=== PATIENT | female | born 1935 | race Caucasian/White ===

== ENCOUNTER 2016-09-20 09:58 | Inpatient (IN) | payer OTHER, BC ==
[~2016-09-20] VITALS: Ht 152.4 cm; Wt 48.0 kg
[2016-09-20] MEDS ORDERED: ZESTORETIC 20-1 EAC1 PO (10:25)
[2016-09-20] MEDS ORDERED: ATORVASTATIN CA20 MG PO (10:26)
[2016-09-20] MEDS ORDERED: SERTRALINE HCL25 MG PO (10:27)
[2016-09-20] MEDS ORDERED: LO-DOSE ASPIRIN81 M2 PO (10:27)
[2016-09-20] MEDS ORDERED: CALTRATE PLUS1 EACH PO (10:28)
[2016-09-20 11:19] LABS: EOSINOPHIL (%) 0.1 % (0-5); HEMATOCRIT 31.8 % (36.0-46.0); IMMATURE GRANULOCYTE (%) 0.4 % (0.0-0.7); LYMPHOCYTE COUNT 0.7 K/uL (1.0-2.8); MCH 29.6 PG (29.0-34.0); MCHC 36.2 G/DL (30.0-36.0); MEAN PLAT.VOLUME 8.9 uM^3 (9.5-12.4); MONOCYTE (%) 13.2 % (3-12); NEUTROPHIL (%) 77.6 % (45-76); PLATELET COUNT 254 K/uL (156-360); RBC DIS.WIDTH-CV 12.1 % (11.8-14.6); RBC DIS.WIDTH-SD 36.8 % (39-53); RED BLOOD COUNT 3.88 M/uL (3.80-5.20); WHITE BLOOD COUNT 7.8 K/uL (4.1-10.2)
[2016-09-20 11:32] LABS: CHLORIDE 91 mEq/L (99-109); POTASSIUM 3.1 mEq/L (3.7-5.4); SODIUM 127 mEq/L (136-147)
[2016-09-20 11:35] LABS: GLUCOSE 125 mg/dL (70-99)
[2016-09-20 11:36] LABS: ANION GAP 11 MEQ/L (2-14)
[2016-09-20 11:37] LABS: TOTAL BILIRUBIN 0.4 mg/dL (0.0-1.0)
[2016-09-20 11:38] LABS: ALKALINE PHOSPHATASE 56 IU/L (3-129); SERUM ETHYL ALCOHOL < 10 mg/dL
[2016-09-20 11:39] LABS: GFR ESTIMATE (CALCULATED) 42 mL/min/
[2016-09-20 11:40] LABS: UREA NITROGEN (BUN) 28 mg/dL (9-23)
[2016-09-20 11:49] LABS: TROP-I INTERPRETATION NEGATIVE; TROPONIN-I 0.01 ng/mL (0.0-0.30)
[2016-09-20 12:23] LABS: ADD MIUA? YES; BILIRUBIN NEGATIVE; BLOOD MODERATE; COLOR YELLOW ((YELLOW)); GLUCOSE (STRIP) NEGATIVE; KETONES NEGATIVE; LEUKOCYTES LARGE; NITRITE POSITIVE; PROTEIN (STRIP) 30; SPECIFIC GRAVITY 1.005 (1.000-1.030); UROBILINOGEN 0.2 MG/DL (0.2-1.0)
[2016-09-20 12:42] LABS: BACTERIA 3+ /HPF; EPITHELIAL CELLS NONE SEEN /HPF; MUCUS TRACE /LPF; RED BLOOD CELLS 30-40 /HPF (0-5); UCUL ADDED? YES; UNCLASSIFIED CASTS 0-5 /LPF; WHITE BLOOD CELLS TNTC /HPF (0-5); WHITE BLOOD CELLS CLUMP FEW /HPF (0-5)
[2016-09-20 12:58] LABS: AMPHETAMINE NEGATIVE (500 ng/mL); BARBITURATES NEGATIVE (200 ng/mL); BENZODIAZEPINES NEGATIVE (150 ng/mL); COCAINE NEGATIVE (150 ng/mL); INTERNAL CONTROLS VALID? YES; METHADONE NEGATIVE (200 ng/mL); METHAMPHETAMINE NEGATIVE (500 ng/mL); OPIATES (MORPHINE) NEGATIVE (100 ng/mL); OXYCODONE NEGATIVE (100 ng/mL); PHENCYCLIDINE NEGATIVE (25 ng/mL); PROPOXYPHENE NEGATIVE (300 ng/mL); THC CANNABINOIDS NEGATIVE (50 ng/mL); TRICYCLIC ANTIDEPRESSANTS NEGATIVE (300 ng/mL)
[2016-09-20 15:49] VITALS: BP 160/73
[2016-09-20 15:53] LABS: FREE T3 2.2 pg/mL (2.3-4.2)
[2016-09-20 15:56] LABS: FERRITIN 92 NG/ML (10-291)
[2016-09-20 16:19] LABS: IRON 19 MCG/DL (35-150)
[2016-09-20 19:51] VITALS: BP 122/57
[2016-09-21 00:37] VITALS: BP 129/61
[2016-09-21 04:41] VITALS: BP 146/63
[2016-09-21 05:56] LABS: ANION GAP 7 MEQ/L (2-14); CHLORIDE 103 MEQ/L (99-109); GFR ESTIMATE (CALCULATED) > 59 mL/min/; MAGNESIUM 1.9 mg/dl (1.3-2.7); SAMPLE HEMOLYSIS CHECK 0; SAMPLE ICTERIC CHECK 0; SAMPLE LIPEMIA CHECK 0; UREA NITROGEN (BUN) 17 mg/dL (9-23)
[2016-09-21 05:57] LABS: GLUCOSE 81 mg/dL (70-99); POTASSIUM 3.8 MEQ/L (3.7-5.4); SODIUM 135 MEQ/L (136-147)
[2016-09-21 07:36] VITALS: BP 144/63
[2016-09-21 11:24] VITALS: BP 160/73
[2016-09-21 16:39] VITALS: BP 142/64
[2016-09-21 20:00] VITALS: BP 142/82
[2016-09-22 04:22] VITALS: BP 137/63
[2016-09-22 08:00] VITALS: BP 147/66
[2016-09-22] MEDS ORDERED: LISINOPRIL20 MG PO (10:48)
[2016-09-22] MEDS ORDERED: CEFTIN500 MG PO (12:07)
[2016-09-22 12:27] VITALS: BP 177/76
== END 2016-09-22 12:32 | disposition home or self-care (01) | DRG 71 ==
LOC: EME 09:58 → EDOF 12:44 → 5WEST 12:44 → EDOF 12:44 → 5WEST 15:15
PROVIDERS: Emergency Medicine; Internal Medicine
DX: G93.40 Encephalopathy, unspecified (principal); E87.1 Hypo-osmolality and hyponatremia; N39.0 Urinary tract infection, site not specified; F33.9 Major depressive disorder, recurrent, unspecified; E78.5 Hyperlipidemia, unspecified; I50.9 Heart failure, unspecified; I11.0 Hypertensive heart disease with heart failure; B96.89 Other specified bacterial agents as the cause of diseases classified elsewhere; F41.9 Anxiety disorder, unspecified; E87.6 Hypokalemia; I67.2 Cerebral atherosclerosis; G31.89 Other specified degenerative diseases of nervous system; T50.2X5A Adverse effect of carbonic-anhydrase inhibitors, benzothiadiazides and other diuretics, initial encounter; Y92.009 Unspecified place in unspecified non-institutional (private) residence as the place of occurrence of the external cause; Z79.82 Long term (current) use of aspirin; Z82.49 Family history of ischemic heart disease and other diseases of the circulatory system
CPT/HCPCS: 70450; 71020; 80048; 80053; 81003; 82436; 82607; 82728; 82746; 83540; 83735; 83930; 83935; 84300; 84439; 84443; 84466; 84481; 84484; 85025; 87077; 87086; 87186; 93005; 99281; 99285; G0378; G0480; J0696; J1650; J7030; J7050